=== PATIENT | male | born 1960 | race Hispanic/Latino ===

== ENCOUNTER 2017-11-07 02:49 | Emergency (ER) | payer OTHER ==
--- OUTSIDE RECORDS SUMMARY | 2017-11-07 02:51 | XMS REPORT | Clinical Summary ---
:1960 Author Organization [facility] Address [address] [place] [address] Care Team Providers Name Role Phone Asked, No Pcp Primary Care Provider Unavailable Allergies Not on File Current Medications No known medications Active Problems Problem Noted Date Diabetes mellitus Complication of anesthesia Family History Medical History Relation Name Comments Diabetes Mother Relation Name Status Comments Mother Social History Tobacco Use Types Packs/Day Years Used Date Never Smoker Alcohol Use Drinks/Week oz/Week Comments No Sex Assigned at Date Recorded Not on file Last Filed Vital Signs Not on file Plan of Treatment Health Maintenance Due Date Last Done Comments FOOT EXAM 1970 OPHTHALMOLOGY EXAM 1970 URINE MICROALBUMIN 1970 COLONOSCOPY 2010 INFLUENZA VACCINE 02/19/2018 Results Not on fileafter 11/06/2016 Insurance Payer Benefit Plan / Group Subscriber ID Type Phone Address WORKERS COMP MISC WORKER'S COMP xxxxxxxxxxxx Workers Comp Guarantor Name Account Type Relation to Date of Phone Billing Patient Address [id number] Workers Comp Self 1960 Work: [address] [place] [address] [phone] Home: [id number] [phone] KE[address] QUACH Personal/Family Self 1960 Work: [id number] [facility] [phone] Home: [id number] [phone]
[2017-11-07] MEDS ORDERED: LIDOCAINE VISCOUS 2% SOLN 15 ML UDC ONE (03:31)
[2017-11-07] MEDS ORDERED: MAGNE/ALUM HYDROXD 30 ML UCUP ONE (03:31)
[2017-11-07 04:08] LABS: Bicarbonate 28 mEq/L (21-31); Glucose Level 164 mg/dL (65-120); Potassium 3.7 mEq/L (3.6-5.0); Sodium Level 138 mEq/L (135-145)
[2017-11-07 04:09] LABS: BUN Blood Urea Nitrogen 16 mg/dL (6-20)
[2017-11-07 04:11] LABS: Absolute Monocytes 0.7 K/uL (0.1-1.3); Absolute Neutrophil 5.5 K/uL (1.8-8.0); Basophils % 0.2 % (0-1.3); Eosinophils % 0.4 % (0-4.4); Hematocrit 46.2 % (39.6-49.0); MCH 28.7 pg (27.0-35.0); MCV 86.7 fL (80-100); MPV 8.6 fL (7.6-11.3); Monocytes % 9.8 % (3.3-12.3); RBC Red Blood Cell Count 5.32 M/uL (4.33-5.43)
--- NOTE | 2017-11-07 04:37 | ER ---
Nurse's Notes [facility] Name: Keon Quach Age: 57 yrs Sex: Male : 1960 Arrival Date: 11/07/2017 Time: 02:51 Bed 7 Private MD: Diagnosis: Epigastric pain Presentation: 11/07 03:04 Presenting complaint: Patient states: Hx of acid reflux, felt burning down chest that lp1 has worsened since 1999 last night; denies any shortness of breath, dizziness; States "if I could just throw up, I would feel better". Transition of care: patient was not received from another setting of care. Onset of symptoms was November 06, 2017 at 20:00. Initial Sepsis Screen: Does the patient meet any 2 criteria? No. Patient's initial sepsis screen is negative. Does the patient have a suspected source of infection? No. Patient's initial sepsis screen is negative. Care prior to arrival: None. 03:04 Method Of Arrival: Ambulatory lp1 03:04 Acuity: RO 3 lp1 Historical: - Allergies: 03:10 Sulfa (Sulfonamide Antibiotics); lp1 - Home Meds: 03:10 pantoprazole 40 mg oral TbEC 1 tab once daily [Active]; Metformin Oral [Active]; lp1 Januvia oral oral [Active]; Glipizide Oral [Active]; Simvastatin Oral [Active]; Lisinopril Oral [Active]; aspirin 81 mg Oral TbEC 1 tab once daily [Active]; - PMHx: 03:10 Hypertension; Diabetes - NIDDM; GERD; Hyperlipidemia; lp1 - PSHx: 03:10 Ankle surgery; Elbow surgery; lp1 - Immunization history:: Adult Immunizations up to date. - Social history:: Smoking status: Patient/guardian denies using tobacco. Screenin:10 Abuse screen: Denies threats or abuse. Denies injuries from another. Nutritional lp1 screening: No deficits noted. Tuberculosis screening: No symptoms or risk factors identified. Fall Risk None identified. Assessment: 03:21 General: Appears in no apparent distress. comfortable, Behavior is calm, cooperative, lp1 appropriate for age. Pain: Complains of pain in mid-sternal area Pain radiates to chest Pain began gradually. Neuro: Level of Consciousness is awake, alert, obeys commands, Oriented to person, place, time, situation. Cardiovascular: Patient's skin is warm and dry. Rhythm is sinus rhythm. Respiratory: Respiratory effort is even, unlabored, Respiratory pattern is regular, symmetrical, Denies shortness of breath. GI: Abdomen is flat, Reports indigestion. : No signs and/or symptoms were reported regarding the genitourinary system. EENT: No signs and/or symptoms were reported regarding the EENT system. Derm: Skin is pink, warm \\T\\ dry. Musculoskeletal: Circulation, motion, and sensation intact. 04:30 Reassessment: Patient is alert, oriented x 3, equal unlabored respirations, skin lp1 warm/dry/pink. Patient states feeling better. Patient states symptoms have improved. Vital Signs: 03:06 BP 133 / 103; Pulse 102; Resp 20; Temp 97.7(O); Pulse Ox 97% on R/A; Weight 86.18 kg; lp1 Height 5 ft. 11 in. (180.34 cm); Pain 7/10; 03:30 BP 142 / 105; Pulse 102; Resp 20; Pulse Ox 96% on R/A; lp1 04:00 BP 126 / 95; Pulse 96; Resp 20; Pulse Ox 97% on R/A; lp1 04:30 BP 134 / 99; Pulse 91; Resp 20; Pulse Ox 97% on R/A; lp1 03:06 Body Mass Index 26.50 (86.18 kg, 180.34 cm) lp1 ED Course: 02:51 Patient arrived in ED. ds1 03:04 Kaila Little, RN is Primary Nurse. lp1 03:06 Triage completed. lp1 03:06 Arm band placed on left wrist. lp1 03:07 Geronimo Gunn MD is Attending Physician. gs 03:10 Patient has correct armband on for positive identification. Placed in gown. Bed in low lp1 position. court recording monitor on. Pulse ox on. NIBP on. 03:10 Patient maintains SpO2 saturation greater than 95% on room air. lp1 03:20 EKG done, by ED staff, reviewed by Geronimo Gunn MD. lp1 03:35 Inserted saline lock: 20 gauge in right antecubital area, using aseptic technique. jd3 Blood collected. placed by [employer]. 03:46 X-ray completed. Portable x-ray completed in exam room. Patient tolerated procedure ag1 well. 03:46 Basic Metabolic Panel Sent. jd3 03:46 CBC with Diff Sent. jd3 03:46 Troponin (emerg Dept Use Only) Sent. jd3 03:47 XRAY Chest (1 view) In Process Unspecified. EDMS 04:39 No provider procedures requiring assistance completed. lp1 04:47 IV discontinued, No redness/swelling at site. Pressure dressing applied. lp1 Administered Medications: 03:34 Drug: GI Cocktail without - (Maalox Suspension 30 ml, Lidocaine Liquid 2 % 15 jd3 ml) Route: PO; 04:37 Follow up: Response: Marked relief of symptoms lp1 Outcome: 04:36 Discharge ordered by . 04:47 Discharged to home ambulatory. lp1 04:47 Condition: good 04:47 Discharge instructions given to patient, Instructed on discharge instructions, follow up and referral plans. medication usage, Demonstrated understanding of instructions, follow-up care, medications, Prescriptions given X 1. 04:47 Patient left the ED. lp1 Signatures: Dispatcher [employer] EDKY Ailyn Givens ds1 Kaila Little, RN RN lp1 Evangelina Cedeno ag1 Geronimo Gunn MD MD gs Davies, Jonathon, RN RN jd3
--- NOTE | 2017-11-07 04:37 | EDPHYS ---
Physician Documentation [facility] Name: Keon Quach Age: 57 yrs Sex: Male : 1960 Arrival Date: 11/07/2017 Time: 02:51 Bed 7 Private MD: ED Physician Geronimo Gunn HPI: 11/07 04:32 This 57 yrs old Male presents to ER via Ambulatory with complaints of Chest gs Pain, Heart Burn. 04:32 The patient or guardian reports chest pain that is located primarily in the epigastric gs area. Onset: yesterday. The pain does not radiate. Associated signs and symptoms: Pertinent negatives: shortness of breath. The chest pain is described as burning, sharp. Duration: The patient or guardian reports a single episode, that is still ongoing. Modifying factors: The symptoms are alleviated by nothing. the symptoms are aggravated by eating. Severity of pain: At its worst the pain was moderate in the emergency department the pain is unchanged. The patient has experienced similar episodes in the past, multiple times. Historical: - Allergies: 03:10 Sulfa (Sulfonamide Antibiotics); lp1 - Home Meds: 03:10 pantoprazole 40 mg oral TbEC 1 tab once daily [Active]; Metformin Oral [Active]; lp1 Januvia oral oral [Active]; Glipizide Oral [Active]; Simvastatin Oral [Active]; Lisinopril Oral [Active]; aspirin 81 mg Oral TbEC 1 tab once daily [Active]; - PMHx: 03:10 Hypertension; Diabetes - NIDDM; GERD; Hyperlipidemia; lp1 - PSHx: 03:10 Ankle surgery; Elbow surgery; lp1 - Immunization history:: Adult Immunizations up to date. - Social history:: Smoking status: Patient/guardian denies using tobacco. ROS: 04:32 All other systems are negative. gs Exam: 04:32 Head/Face: Normocephalic, atraumatic. Eyes: Pupils equal round and reactive to light, gs extra-ocular motions intact. Lids and lashes normal. Conjunctiva and sclera are non-icteric and not injected. Cornea within normal limits. Periorbital areas with no swelling, redness, or edema. ENT: Nares patent. No nasal discharge, no septal abnormalities noted. Tympanic membranes are normal and external auditory canals are clear. Oropharynx with no redness, swelling, or masses, exudates, or evidence of obstruction, uvula midline. Mucous membranes moist. Neck: Trachea midline, no thyromegaly or masses palpated, and no cervical lymphadenopathy. Supple, full range of motion without nuchal rigidity, or vertebral point tenderness. No Meningismus. Chest/axilla: Normal chest wall appearance and motion. Nontender with no deformity. No lesions are appreciated. Cardiovascular: Regular rate and rhythm with a normal S1 and S2. No gallops, murmurs, or rubs. Normal PMI, no JVD. No pulse deficits. Respiratory: Lungs have equal breath sounds bilaterally, clear to auscultation and percussion. No rales, rhonchi or wheezes noted. No increased work of breathing, no retractions or nasal flaring. Abdomen/GI: Soft, non-tender, with normal bowel sounds. No distension or tympany. No guarding or rebound. No evidence of tenderness throughout. Back: No spinal tenderness. No costovertebral tenderness. Full range of motion. Skin: Warm, dry with normal turgor. Normal color with no rashes, no lesions, and no evidence of cellulitis. MS/ Extremity: Pulses equal, no cyanosis. Neurovascular intact. Full, normal range of motion. Neuro: Awake and alert, GCS 15, oriented to person, place, time, and situation. Cranial nerves II-XII grossly intact. Motor strength 5/5 in all extremities. Sensory grossly intact. Cerebellar exam normal. Normal gait. 04:32 Constitutional: The patient appears alert, awake. 04:32 Constitutional: The patient appears uncomfortable. 04:32 ECG was reviewed by the Attending Physician. Vital Signs: 03:06 BP 133 / 103; Pulse 102; Resp 20; Temp 97.7(O); Pulse Ox 97% on R/A; Weight 86.18 kg; lp1 Height 5 ft. 11 in. (180.34 cm); Pain 7/10; 03:30 BP 142 / 105; Pulse 102; Resp 20; Pulse Ox 96% on R/A; lp1 04:00 BP 126 / 95; Pulse 96; Resp 20; Pulse Ox 97% on R/A; lp1 04:30 BP 134 / 99; Pulse 91; Resp 20; Pulse Ox 97% on R/A; lp1 03:06 Body Mass Index 26.50 (86.18 kg, 180.34 cm) lp1 MDM: 03:28 Patient medically screened. 04:32 Differential diagnosis: acute myocardial infarction, chest wall pain, gastroesophageal gs reflux disease (GERD). Data reviewed: vital signs, nurses notes. Response to treatment: the patient's symptoms have resolved after treatment, and as a result, I will discharge patient. 11/07 03:29 Order name: Basic Metabolic Panel; Complete Time: 04:23 11/07 03:29 Order name: CBC with Diff; Complete Time: 04:23 11/07 03:29 Order name: Troponin (emerg Dept Use Only); Complete Time: 04:23 11/07 03:29 Order name: XRAY Chest (1 view) 11/07 03:29 Order name: EKG; Complete Time: 03:30 11/07 03:29 Order name: Cardiac monitoring; Complete Time: 03:29 11/07 03:29 Order name: EKG - Nurse/Tech; Complete Time: 03:30 11/07 03:29 Order name: IV Saline Lock; Complete Time: 03:36 11/07 03:29 Order name: Labs collected and sent; Complete Time: 03:38 11/07 03:29 Order name: O2 Per Protocol; Complete Time: 03:30 11/07 03:29 Order name: O2 Sat Monitoring; Complete Time: 03:30 EC:32 Rate is 85 beats/min. Rhythm is regular. MN interval is normal. QRS interval is normal. gs QT interval is normal. T waves are Normal. No ST changes noted. Clinical impression: Abnormal EKG without significant change. Interpreted by me. Administered Medications: 03:34 Drug: GI Cocktail without - (Maalox Suspension 30 ml, Lidocaine Liquid 2 % 15 jd3 ml) Route: PO; 04:37 Follow up: Response: Marked relief of symptoms lp1 Disposition: 11/07/17 04:36 Discharged to Home. Impression: Epigastric pain. - Condition is Stable. - Discharge Instructions: Gastroesophageal Reflux Disease, Adult. - Prescriptions for Carafate 100 mg/mL Oral suspension - take 10 milliliter by ORAL route 4 times per day As needed on an empty stomach 1 hour before meals and at bedtime; 250 milliliter. - Medication Reconciliation Form, Thank You Letter, Antibiotic Education, Prescription Opioid Use form. - Follow up: Private Physician; When: 1 - 2 days; Reason: Re-evaluation by your physician. Signatures: Dispatcher [employer] Kaila Carney RN RN lp1 Geronimo Gunn MD MD gs Davies, Jonathon, RN RN jd3 Corrections: (The following items were deleted from the chart) 04:37 03:29 Urine Dipstick-Ancillary ordered. lp1
--- NOTE | 2017-11-07 08:49 | RAD REPORT ---
EXAM DESCRIPTION: Jyotsna Single View11/07/2017 3:48 am CLINICAL HISTORY: Chest pain COMPARISON: 2016 FINDINGS: The lungs appear clear of acute infiltrate. The heart is normal size IMPRESSION: No acute abnormalities displayed
--- NOTE | 2017-11-07 09:14 | EKG ---
Test Date: 2017-11-07 Test Time: 03:11:42 Red Cap: OR MEASUREMENT RESULTS: Intervals: Rate: 85 NJ: 162 QRSD: 96 QT: 354 QTc: 421 [place]: P: -5 NJ: 162 QRS: -28 T: -8 INTERPRETIVE STATEMENTS: Normal sinus rhythm with sinus arrhythmia Moderate voltage criteria for LVH, may be normal variant Borderline ECG No previous ECG available for comparison Electronically Signed On 11-07-17 09:13:35 CDT by Lorenzo Santiago
== END 2017-11-07 04:47 | disposition home or self-care (01) ==
LOC: ER 02:49
DX: R10.13 Epigastric pain (principal); I10 Essential (primary) hypertension; K21.9 Gastro-esophageal reflux disease without esophagitis; E11.9 Type 2 diabetes mellitus without complications; E78.5 Hyperlipidemia, unspecified; Z88.2 Allergy status to sulfonamides; Z79.82 Long term (current) use of aspirin
CPT/HCPCS: 36415; 71045; 80048; 84484; 85025; 93005; 99285